=== PATIENT | male | born 1945 | race Caucasian/White ===

== ENCOUNTER → 2017-03-20 | Outpatient (CLI) | payer MEDICARE, OTHER ==
--- NOTE | 2017-03-20 16:31 | RADIOLOGY REPORT PS360 ---
EXAM: CT LUNG LOW DOSE WO CONTRAST COMPARISON: None HISTORY: Current smoker. One pack per day 56 years = 56 pack-year. Patient asymptomatic TECHNIQUE: The exam was performed on a [employer] Light Speed [address] scanner using 3.0 mGy CTDI. A low dose helical CT CHEST was performed on a multi-detector scanner The LDCT was performed in a facility that meets the criteria for the screening program. Data regarding this exam was submitted to ACR which is an approved registry. The order for this exam indicates that it came as a result of a lung cancer screening counseling shard decision-making visit that included all the elements required of such a visit including smoking cessation. The radiologist interpreting this exam meets the [facility] criteria for the LDCT lung cancer screening program. The exam is reported using the Lung-RADS classification scale and reported to the ACR registry. NOTE: This study was performed for the specific purposes of lung cancer screening and is not an alternative to diagnostic chest CT. RADIATION DOSE: CTDI vol(CT dose Index-volume) = 2.95mGy DLP (Dose Length Product) = 108.49 mGy-cm FINDINGS: No suspicious pulmonary nodules or mass are evident Indeterminate/Non-actionable Nodules(Category2): None Benign nodules(Category1)None LUNG PARENCHYMA Emphysema: Scant centrilobular emphysematous changes Scant scarring and and localized fibrotic changes towards left CP angle. Minimal linear scarring at the right posterior sulcus is similar to ONE year be would be adequate for these features. OTHER ANATOMIC REGIONS Lymph Nodes: Numerous dense calcified nodes at the right paratracheal region subcarinal region reflecting old granulomatous disease Pleura: Unremarkable Cardiac: Coronary artery calcification most evident LAD, less evident circumflex and right coronary. Mild degenerative changes throughout T-spine. No focal lesion. OTHER FINDINGS: Upper abdomen. Stomach: moderate fluid filled fluid filled distended stomach. Liver: Numerous benign-appearing cyst throughout the visualized portions of the liver. These Measure fluid density on this scan. However suggest ultrasound to verify benign simple cysts. Larger cyst measuring 2.8 cm at the left lobe 2.3 cm cyst within caudate lobe; 3.4 cm cyst right lobe there is generous with caudate. 2.4 cm cyst at posterior the right marce. Numerous other smaller cysts noted IMPRESSION:--------- 1. Lung RADS Category: 1 No suspicious findings no nodules of concern. Minimal scarring toward lung bases bilaterally Follow-up LDCT one year adequate 2. Other findings: Numerous hepatic cyst throughout liver RECOMMENDATIONS:- 12 monthd LDCT follow-up
== END ==
LOC: RAD 14:54
DX: Z87.891 Personal history of nicotine dependence (principal); Z12.2 Encounter for screening for malignant neoplasm of respiratory organs